=== PATIENT | female | born 1970 | race Caucasian/White ===

== ENCOUNTER 2018-04-29 10:04 | Outpatient (CLI) | payer BC, OTHER ==
--- NOTE | 2018-04-29 17:03 | MRI Report ---
Reason: NECK PAIN WITH R SIDE RADICULAR SYMPTOMS Procedure Date: 04/29/2018 Accession Number: [id number] / [id number] Procedure: MRI - Cervical Spine W/O CPT Code: FULL RESULT: EXAM: MRI CERVICAL SPINE WITHOUT CONTRAST EXAM DATE: 04/29/2018 10:47 AM. CLINICAL HISTORY: Neck pain with right-sided radiculopathy. COMPARISONS: X-ray cervical spine minimum 4 views 03/20/2010 4:13 PM. TECHNIQUE: Multiplanar, multisequence T1-weighted and fluid-sensitive sequences of the cervical spine without contrast. Other: None. FINDINGS: Neurologic Structures: The visualized posterior fossa structures are unremarkable. No signal abnormality in the visualized spinal cord. Alignment: No scoliosis or spondylolisthesis. Bone Marrow: No acute fracture or bone lesions. Interspace Levels/Facets: The craniocervical junction is unremarkable. C1-C2: Unremarkable. C2-C3: Unremarkable. C3-C4: Unremarkable. C4-C5: Unremarkable. C5-C6: Type II degenerative endplate changes. Moderate to severe disk space narrowing. Small to moderate sized right foraminal disk protrusion/osteophyte complex. Bilateral uncovertebral joint osteophytes, right more than left. Moderate narrowing of the entry zone of the exiting right C6 nerve. Moderate to severe right foraminal stenosis. C6-C7: Minimal disk bulge. Right-sided uncovertebral joint osteophytes. Mild to moderate right foraminal stenosis. C7-T1: Unremarkable. Musculature: Normal. No edema or fatty atrophy. Other: The paravertebral and prevertebral soft tissues are normal. IMPRESSION: 1. Small to moderate size right foraminal disk protrusion/osteophyte complex at C5-C6. Moderate narrowing of the entry zone of the exiting right C6 nerve and moderate to severe right foraminal stenosis. 2. Minimal disk bulge at C6-C7. Right-sided uncovertebral joint osteophytes and mild to moderate right foraminal stenosis. RADIA
== END 2018-04-29 10:05 | disposition home or self-care (01) ==
LOC: DI 10:04
PROVIDERS: ATTEND Family Medicine
DX: M50.222 Other cervical disc displacement at C5-C6 level (principal); M50.322 Other cervical disc degeneration at C5-C6 level; M48.02 Spinal stenosis, cervical region
CPT/HCPCS: 72141

== ENCOUNTER 2019-06-28 17:10 | Outpatient (CLI) | payer OTHER | END 2019-06-28 17:11 | disposition home or self-care (01) | LOC: COV 17:10 | PROVIDERS: ATTEND Family Medicine | DX: R50.9 Fever, unspecified (principal); R19.7 Diarrhea, unspecified | CPT/HCPCS: 81599 ==

== ENCOUNTER 2020-03-16 08:48 | Outpatient (CLI) | payer OTHER ==
--- NOTE | 2020-03-17 09:54 | Mammography Report ---
BILATERAL DIGITAL SCREENING MAMMOGRAM 3D/2D: 03/16/2020 CLINICAL: Baseline exam. Routine screening. No prior exams were available for comparison. There are scattered fibroglandular elements in both br easts. There is a possible mass in the right breast at 11 o'clock middle depth. No other significant masses, calcifications, or other findings are seen in either breast. IMPRESSION: INCOMPLETE: NEEDS ADDITIONAL IMAGING EVALUATION The possible mass in the right breast resembles a lymph node and is indeterminate. Additional views with possible ultrasound are recommended. This exam was interpreted at Station ID: [id number]. NOTE: For mammograms, a report in lay terms will be sent to the patient. Approximately 15% of breast malignancies will not be visualized mammographically. In the management of a palpable breast mass, a negative mammogram must not discourage biopsy of a clinically suspicious lesion. Electronically Signed By: Timothy leyva/sandi:03/16/2020 10:04:26 ACR BI-RADS Category 0: Incomplete 3340F PARENCHYMAL PATTERN: (A) - The breast(s) demonstrate(s) scattered fibroglandular densities. BI-RADS CATEGORY: (0) - 0 Mammo and [place] [id number] Immediate follow-up LATERALITY: (R)
== END 2020-03-16 08:49 | disposition home or self-care (01) ==
LOC: DI.N 08:48
PROVIDERS: ATTEND Internal Medicine
DX: Z12.31 Encounter for screening mammogram for malignant neoplasm of breast (principal)

== ENCOUNTER 2020-04-14 08:57 | Outpatient (CLI) | payer OTHER ==
--- NOTE | 2020-04-17 09:31 | Ultrasound Report ---
LIMITED ULTRASOUND OF RIGHT BREAST: 04/14/2020 CLINICAL: Additional evaluation requested from prior study. Comparison is made to exams dated: 04/14/2020 mammogram and 03/16/2020 mammogram - [facility]. Color flow ultrasound of the right breast 12 o'clock region was performed. Damon scale images of the real-time examination were reviewed. There is a benign 0.5 cm x 0.8 cm x 0.3 cm oval lymph node with a circumscribed margin in the right b reast at 12 o'clock middle depth 7 cm from the nipple. This oval lymph node is hypoechoic with fatty hilum. This correlates with mammography findings. IMPRESSION: BENIGN There is no sonographic evidence of malignancy. The 0.5 cm x 0.8 cm x 0.3 cm oval lymph node in the right breast is benign. A 1 year screening mammogram is recommended. This exam was interpreted at Station ID: [id number]. Electronically Signed By: Timothy leyva/sandi:04/14/2020 09:56:48 Ultrasound BI-RADS: 2 Benign BI-RADS CATEGORY: (2) - 2 RECOMMENDATION: (ANNUAL) - Recommend routine annual screening mammography. [id number] 1 year screening LATERALITY: (B)
--- NOTE | 2020-04-17 09:31 | Mammography Report ---
UNILATERAL RIGHT DIGITAL DIAGNOSTIC MAMMOGRAM 3D/2D: 04/14/2020 CLINICAL: Patient returns for additional imaging over a suspected mass in the right breast. Comparison is made to exam dated: 03/16/2020 mammogram - [facility]. There are sca ttered fibroglandular elements in right breast. There is an oval mass with a circumscribed margin in the right breast at 12 o'clock middle depth. Th is is seen in additional views. No other significant masses or calcifications are seen in the breast. IMPRESSION: INCOMPLETE: NEEDS ADDITIONAL IMAGING EVALUATION The oval mass in the right breast resembles a lymph node and is indeterminate. An ultrasound is karli mmended. Targeted ultrasound is recommended for further evaluation, which will be performed immediat ruth following this exam. This exam was interpreted at Station ID: [id number]. NOTE: For mammograms, a report in lay terms will be sent to the patient. Approximately 15% of breast malignancies will not be visualized mammographically. In the management of a palpable breast mass, a negative mammogram must not discourage biopsy of a clinically suspicious lesion. Electronically Signed By: Timothy leyva/sandi:04/14/2020 09:50:54 ACR BI-RADS Category 0: Incomplete 3340F PARENCHYMAL PATTERN: (A) - The breast(s) demonstrate(s) scattered fibroglandular densities. BI-RADS CATEGORY: (0) - 0 Ultrasound [id number] Immediate follow-up LATERALITY: (R)
== END 2020-04-14 08:58 | disposition home or self-care (01) ==
LOC: DI 08:57
PROVIDERS: ATTEND Family Medicine
DX: R92.8 Other abnormal and inconclusive findings on diagnostic imaging of breast (principal)

== ENCOUNTER 2022-06-25 10:28 | Outpatient (CLI) | payer OTHER ==
--- NOTE | 2022-06-25 16:45 | XRAY Report ---
PROCEDURE: Shoulder 3 View RT INDICATIONS: RIGHT SHOULDER PAIN TECHNIQUE: 3 views of the shoulder were acquired. COMPARISON: None. FINDINGS: Bones: No fractures or dislocations. Mild acromioclavicular joint and glenohumeral joint osteoarthri tic changes are seen with joint space narrowing and subchondral sclerosis. No suspicious bony lesions . Visualized ribs appear intact. Soft tissues: No suspicious soft tissue calcifications. IMPRESSION: No shoulder fracture or dislocation. Moderate shoulder joint osteoarthritis. Reviewed by: Everardo Mohamud MD on 06/25/2022 4:44 PM PDT Approved by: Everardo Mohamud MD on 06/25/2022 4:44 PM PDT Station ID: [id number]
== END 2022-06-25 10:29 | disposition home or self-care (01) ==
LOC: DI 10:28
PROVIDERS: ATTEND Internal Medicine
DX: M19.011 Primary osteoarthritis, right shoulder (principal)